=== PATIENT | male | born 1980 | race Two or more races ===

== ENCOUNTER 2025-03-22 15:48 | Inpatient (IN) | payer BC ==
[~2025-03-22] VITALS: Ht 180.3 cm; Wt 108.9 kg
--- NOTE | 2025-03-22 17:06 | ED.PDOC ---
HPI (NEURO) HPI Comments This ia a 44 year old male KRISTYA presenting to the ED with chief complaint of syncope. Patient reports that while at work, he had passed out, waking up on the ground. Patient relays that he feels generally weak at this time. EMS states patient had been working for 7 hours in the heat without proper water or food intake all day. EMS notes patient is currently A/Ox4 and BG of 145. Patient denies any chest pain, headache, SOB, N/V, or abdominal pain. Chief Complaint: Syncope Time Seen by MD: 16:00 Reviewed Notes: Nurses Notes, Warehouse Hand Notes, Medications, Allergies Information Source: Patient, Emergency Med Personnel Mode of Arrival: EMS Severity: Moderate Dizziness/Weakness Severity: Unable to do activities Timing: Hours Duration: Since onset Prehospital treatment: None Onset: With heavy exertion Circumstances: Spontaneous Symptoms: Syncope Past Medical History PAST MEDICAL HISTORY: Denies Surgical History: Denies all surgeries Family History Family History: Reviewed,noncontributory to illness Social History Smoker: Non-Smoker Alcohol: Denies ETOH Use Drugs: Denies Drug Use Lives In: Home Constitutional: reports: weakness; denies: chills, diaphoresis, fatigue, fever, malaise, sweats, others EENTM: denies: blurred vision, double vision, ear bleeding, ear discharge, ear drainage, ear pain, ear ringing, eye pain, eye redness, hearing loss, mouth pain, mouth swelling, nasal discharge, nose bleeding, nose congestion, nose pain, photophobia, tearing, throat pain, throat swelling, voice changes, others Respiratory: denies: cough, hemoptysis, orthopnea, SOB at rest, shortness of breath, SOB with excertion, stridor, wheezing, others Cardiovascular: reports: syncope; denies: chest pain, dizzy spells, diaphoresis, Dyspnea on exertion, edema, irregular heart beat, left arm pain, lightheadedness, palpitations, PND, others Gastrointestinal: denies: abdomen distended, abdominal pain, blood streaked bowels, constipated, diarrhea, dysphagia, difficulty swallowing, hematemesis, melena, nausea, poor appetite, poor fluid intake, rectal bleeding, rectal pain, vomiting, others Genitourinary: denies: burning, dysuria, flank pain, frequency, hematuria, incontinence, penile discharge, penile sore, pain, testicle pain, testicle swelling, urgency, others Neurological: denies: dizziness, fainting, headache, left sided numbness, left sided weakness, numbness, paresthesia, pre-existing deficit, right sided numbness, right sided weakness, seizure, speech problems, tingling, tremors, weakness, others Musculoskeletal: denies: back pain, gout, joint pain, joint swelling, muscle pain, muscle stiffness, neck pain, others Integumetry: denies: bruises, change in color, change in hair/nails, dryness, laceration, lesions, lumps, rash, wounds, others Allergic/Immunocompromised: denies: Difficulty Healing, Frequent Infections, Hives, Itching, others Hematologic/Lymphatic: denies: anemia, blood clots, easy bleeding, easy bruising, swollen glands, others Endocrine: denies: excessive hunger, excessive sweating, excessive thirst, excessive urination, flushing, intolerance to cold, intolerance to heat, unexplained weight gain, unexplained weight loss, others Psychiatric: denies: anxiety, bipolar disorder, depression, hopeless, panic disorder, schizophrenia, sleepless, suicidal, others All Other Systems: Reviewed and Negative Physical Exam General Appearance: No Apparent Distress, Normal HEENT: Normal ENT Inspection, Pharynx Normal, TMs Normal Neck: Full Range of Motion, Non-Tender, Normal, Normal Inspection Respiratory: Chest Non-Tender, Lungs Clear, No Accessory Muscle Use, No Respiratory Distress, Normal Breath Sounds Cardiovascular: No Edema, No JVD, No Murmur, No Gallop, Normal Peripheral Pulses, Regular Rate/Rhythm Breast Exam: Deferred Gastrointestinal: No Organomegaly, Non Tender, No Pulsatile Mass, Normal Bowel Sounds, Soft Genitalia: Deferred Pelvic: Deferred Rectal: Deferred Extremities: No calf tenderness, Normal capillary refill, Normal inspection, Normal range of motion, Non-tender, No pedal edema Musculoskeletal : Apperance: Normal Neurologic: Alert, amalgamator II-XII nml as Tested, No Motor Deficits, Normal Affect, Normal Mood, No Sensory Deficits Cerebellar Function: Normal Reflexes: Normal Skin: Dry, Normal Color, Warm Lymphatic: No Adenopathy Was a procedure done? Was a procedure done?: No Differential Diagnosis (SZ) Seizure: N/A CVA: CVA, SAH, TIA General Weakness: Dehydration, Electrolyte imbalance, Renal failure, TIA Headache: N/A X-Ray, Labs, Meds, VS Vital Signs Date Time Temp Pulse Resp B/P (MAP) Pulse Ox O2 Delivery O2 Flow Rate FiO2 03/22/25 16:03 97.7 70 20 114/68 98 97.7 03/22/25 15:55 75 Lab Test 03/22/25 17:54 03/22/25 16:58 Range/Units Troponin I High Sensitivity 47 38 </=54 ng/L White Blood Count 15.4 H 4.4-10.8 10^3/uL Red Blood Count 5.70 4.5-5.90 10^6/uL Hemoglobin 17.4 13.5-17.5 g/dL Hematocrit 51.5 41.0-53.0 % Mean Corpuscular Volume 90.3 80.0-100.0 fL Mean Corpuscular Hemoglobin 30.5 28.0-32.0 pg Mean Corpuscular Hemoglobin Concent 33.8 32.0-36.0 g/dL Red Cell Distribution Width 13.2 11.8-14.3 % Platelet Count 189 140-450 10^3/uL Mean Platelet Volume 8.1 6.9-10.8 fL Neutrophils (%) (Auto) 90.7 H 37.0-80.0 % Lymphocytes (%) (Auto) 5.4 L 10.0-50.0 % Monocytes (%) (Auto) 3.5 0.0-12.0 % Eosinophils (%) (Auto) 0.1 0.0-7.0 % Basophils (%) (Auto) 0.3 0.0-2.0 % Neutrophils # (Auto) 13.9 H 1.6-8.6 10 ^3/uL Lymphocytes # (Auto) 0.8 0.4-5.4 10 ^3/uL Monocytes # (Auto) 0.5 0-1.3 10 ^3/uL Eosinophils # (Auto) 0 0-0.8 10 ^3/uL Basophils # (Auto) 0 0-0.2 10 ^3/uL Nucleated Red Blood Cells 0.1 % Sodium Level 142 136-145 mmol/L Potassium Level 4.7 3.5-5.1 mmol/L Chloride Level 105 98-107 mmol/L Carbon Dioxide Level 25 20-31 mmol/L Anion Gap 12 5-15 Blood Urea Nitrogen 12 9-23 mg/dL Creatinine 1.89 H 0.700-1.30 mg/dL Glomerular Filtration Rate Calc 44 >90 mL/min BUN/Creatinine Ratio 6.3 L 10.0-20.0 Serum Glucose 105 74-106 mg/dL Calcium Level 10.3 8.7-10.4 mg/dL Time of 1ST Reevaluation: 17:00 Reevaluation 1ST: Unchanged Patient Education/Counseling: Diagnosis, Treatment Family Education/Counseling: No Family Present Departure 1 Departure Time of Disposition: 19:02 (Patient presented with syncope today and should be admitted. Data: 1. I ordered and reviewed the result of at least 3 labs including a CBC, BMP, and troponin. 2. I independently interpreted the following tests: EKG which shows a sinus arrhythmia and a chest x-ray which shows benign chest and a CT head which shows benign brain.Risk:This patient has a high risk of morbidity due to further diagnostic testing or treatment and may suffer from an acute cardiac, neurologic, or infectious disorder. Rationale: Patient should be admitted to the hospital for further management.) Impression: Primary Impression: Syncope and collapse Disposition: ADMITTED INPATIENT Admit to: Med Surg Condition: Serious Critical Care Note Critical Care Time?: No Stability Stability form required: No Heart Score Heart Score: Heart Score Response (Comments) Value History Moderate Suspicious 1 EKG Normal 0 Age <45 0 Risk Factors 1 or 2 risk factors 1 Troponin 1-2 x's Normal limit 1 Total 3 I personally scribed for YENNI ADAME MD ([email or web address]) on 03/22/25 at 17:06. Electronically submitted by Eric Beauchamp ([email or web address]). YENNI ADAME MD Mar 22, 2025 17:06
[2025-03-22 17:15] LABS: Hematocrit 51.5 % (41.0-53.0); Hemoglobin 17.4 g/dL (13.5-17.5); Mean Corpuscular Hemoglobin 30.5 pg (28.0-32.0); Mean Corpuscular Volume 90.3 fL (80.0-100.0); Nucleated Red Blood Cells % 0.1 %
[2025-03-22 17:23] LABS: Chloride 105 mmol/L (98-107); Potassium 4.7 mmol/L (3.5-5.1); Sodium 142 mmol/L (136-145)
[2025-03-22 17:24] LABS: Anion Gap 12 (5-15); Calcium 10.3 mg/dL (8.7-10.4); Carbon Dioxide 25 mmol/L (20-31)
[2025-03-22 17:29] LABS: BUN/Creatinine Ratio 6.3 (10.0-20.0); Blood Urea Nitrogen 12 mg/dL (9-23); Glucose 105 mg/dL (74-106)
--- NOTE | 2025-03-22 17:32 | DVH ---
CHEST RADIOGRAPH Indication: syncope Technique: Single frontal view of the chest was obtained Comparison: None FINDINGS: Lines and Tubes: None Lungs: No focal consolidation. Pleura: No effusion. No pneumothorax. Cardiomediastinal contours: Unremarkable Bones: No acute osseous abnormality. IMPRESSION: No acute cardiopulmonary disease.
--- NOTE | 2025-03-22 17:39 | DVH ---
EXAM: CT HEAD WITHOUT CONTRAST INDICATION: syncope TECHNIQUE: CT of the head without intravenous contrast. Radiation Dose Information: CT Dose: CTDI volume is 58.96 mGy. Dose-length product is 1014.39 mGy*cm The dose indicators for CT are the volume Computed Tomography (CT) Dose Index (CTDIvol) and the Dose Length Product (DLP), and are measured in units of mGy and mGy-cm, respectively. These indicators are not patient dose, but values generated from the CT scanner acquisition factors. The report includes radiation exposure data for exposures received during this examination. COMPARISON: None FINDINGS: There is no evidence of acute intracranial hemorrhage, extra-axial collection, mass effect, midline s hift, herniation or hydrocephalus. The ventricles, sulci and cisterns are age appropriate. The vora-white differentiation is intact. Patchy periventricular and subcortical white matter hypoattenuation is nonspecific but may be related to small vessel ischemic disease. The visualized paranasal sinuses and mastoid air cells are clear. The surrounding soft tissues and osseous structures are unremarkable. IMPRESSION: 1. No acute intracranial abnormality. 2. No acute intracranial hemorrhage 3. No intracranial mass 4. No territorial ischemia.
--- NOTE | 2025-03-22 18:49 | ECG ---
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
[2025-03-22 20:38] LABS: Urine Protein, UAD Negative (Negative)
[2025-03-22] MEDS: SODIUM CHLORIDE 0.9% 1,000 ML IV ONE (22:44)
[2025-03-22] MEDS ORDERED: ONDANSETRON HCL 4 MG/2 ML VIAL IV PRN (23:30)
[2025-03-22] MEDS ORDERED: DOCUSATE SOD 100 MG CAP PO PRN (23:30)
[2025-03-23] VITALS (7 sets, daily range): BP systolic 100–130; BP diastolic 51–73; PULSE 58–80; RESP 18–19; TEMP 97.1–98.6; O2SAT 96–98
[2025-03-23 03:57] LABS: Hematocrit 46.5 % (41.0-53.0); Hemoglobin 16.0 g/dL (13.5-17.5); Mean Corpuscular Hemoglobin 30.6 pg (28.0-32.0); Mean Corpuscular Volume 89.2 fL (80.0-100.0); Nucleated Red Blood Cells % 0.1 %
[2025-03-23 05:00] LABS: Alanine Aminotransferase 34 U/L (7-40); Albumin 4.5 g/dL (3.2-4.8); Alkaline Phosphatase 61 U/L (46-116); Anion Gap 12 (5-15); BUN/Creatinine Ratio 8.6 (10.0-20.0); Bilirubin, Total 1.1 mg/dL (0.2-1.0); Blood Urea Nitrogen 13 mg/dL (9-23); Calcium 9.4 mg/dL (8.7-10.4); Carbon Dioxide 25 mmol/L (20-31); Chloride 105 mmol/L (98-107); Glucose 85 mg/dL (74-106); Potassium 4.1 mmol/L (3.5-5.1); Sodium 142 mmol/L (136-145); Total Protein 7.5 g/dL (5.7-8.2)
[2025-03-23] MEDS: SODIUM CHLORIDE 0.9% 1,000 ML IV SCH (07:29)
[2025-03-23 08:22] LABS: Creatine Kinase IFCC 566 U/L (46-171)
--- NOTE | 2025-03-23 08:43 | DVH ---
INDICATION: rule out kideneys, ureter and bladder obstruction TECHNIQUE: Multiple real-time sonographic images of the kidneys and bladder were obtained. COMPARISON: None FINDINGS: The right kidney measures 9 cm in length, which is normal in size. There is normal echogeni city of the right kidney. No hydronephrosis. The left kidney measures 9 cm in length, which is normal in size. There is normal echogenicity of the left kidney. No hydronephrosis. No large intraluminal masses are seen in the bladder. IMPRESSION: 1. Normal sonographic appearance of the kidneys. No hydronephrosis.
--- NOTE | 2025-03-23 09:01 | DVHHPRES ---
History of Present Illness Resident Creating Document: KENDALL DURAN History of Present Illness History of Present Illness (HPI): Raleigh Sandoval is a 44-year-old male with a past medical history of chronic kidney disease stage 3a and asthma who presented to the emergency department via EMS with a chief complaint of syncope. 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 During this time, he experienced a sudden loss of consciousness and awoke on the ground, prompting emergency services to be called. Upon EMS arrival, he was found to be alert and oriented to person, place, time, and situation (A/Ox4), with a blood glucose level of 145. The patient reports feeling generally weak and notes that he had three episodes of vomiting, along with blurring of vision and pain in the head and neck. He denies experiencing chest pain, shortness of breath, headache, nausea, abdominal pain, or fever. Past Medical History (PMH): chronic kidney disease stage 3a and asthma Past Surgical History (PSH): Left wrist surgery OBGYN Hx in Females: noncontributory Family history (FH): thyroid disease and type 2 diabetes mellitus in father EtOH: occasional alcohol use Smoking /Vaping: patient denies smoking Recreational Drugs: denies recreational drug use Residence: lives with daughter Home Medications: albuterol Allergies: no known allergies PCP:Dr. Trujillo Specialist relevant to admission: not relevant Review of Systems Review of Systems General: patient denies fever, fatigue, weaknes, sweating, any recent changes in appetite and weight HEENT: Complaint of headache and neck pain Cardiovascular: Denies chest pain, palpitations, dyspnea on exertion, orthopnea, or claudication. Respiratory: No cough, and wheezing. Gastrointestinal: Denies nausea, vomiting, dysphagia, odynophagia, heartburn, abdominal pain, flatulence, bloating, diarrhea, constipation, change in stool, or blood in stool. Genitourinary: No dysuria, hematuria, discharge, frequency, urgency, nocturia, incontinence, and urinary retention. Endocrine: No heat or cold intolerance, polydipsia, polyuria, and polyphagia. Neurological: No dizziness, extremity weakness and numbness, tremors, gait disturbance, seizures, and memory impairment. Psychiatric: Denies depression, anxiety,or insomnia. Musculoskeletal: Denies neck pain, stiffness and swelling, back pain, muscle weakness, joint pain, stiffness, swelling, or limited range of motion. Skin: No rashes, itching, skin lesion, changes in hair, nail, skin texture and breast. Hematologic/Lymphatic: Denies easy bruising, bleeding tendencies, or lymph node enlargement. Allergies: Coded Allergies: NO KNOWN ALLERGIES (Unverified , 03/22/25) Medications Current Medications Medications Dose Ordered Sig/Francis Route Start Time Stop Time Status Last Admin Dose Admin Acetaminophen 325 mg Q4HP PRN PO 03/22/25 23:30 Ondansetron HCl 4 mg Q4HP PRN IV 03/22/25 23:30 Docusate Sodium 100 mg BIDPRN PRN PO 03/22/25 23:30 Sodium Chloride 1,000 ml @ 125 mls/hr Q8H IV 03/23/25 00:30 03/23/25 07:29 125 MLS/HR Loratadine 10 mg DAILY PO 03/23/25 10:00 Exam Vital Signs Vital Signs Date Time Temp Pulse Resp B/P (MAP) Pulse Ox O2 Delivery O2 Flow Rate FiO2 03/23/25 05:00 97.1 72 18 123/63 (83) 97 97.1 03/23/25 04:00 Room Air* 0 21 Exam General Appearance: Alert, Oriented X3, Cooperative, No acute distress HEENT: Atraumatic, PERRLA, EOMI, Mucous membrane moist/pink Respiratory: Clear to auscultation, Normal air movement Cardiovascular: Regular rate, Normal S1, Normal S2, No murmurs, no chest wall tenderness Abdominal: Normal bowel sounds, Soft, No tenderness, No hepatospenomegaly, No masses Extremities: No clubbing, No cyanosis, No edema, Normal pulses, No tenderness/swelling Skin: No rashes, No breakdown, No significant lesion Neuro: Normal gait, Normal speech, Strength at 5/5 X4 ext, Normal tone, Sensation intact, Cranial nerves 3-12 NL, Reflexes 2+ Psych/Mental Status: Mental status NL, Mood NL Labs/Xrays Labs Test 03/23/25 03:05 03/22/25 19:45 03/22/25 18:20 Range/Units White Blood Count 11.6 H 4.4-10.8 10^3/uL Red Blood Count 5.21 4.5-5.90 10^6/uL Hemoglobin 16.0 13.5-17.5 g/dL Hematocrit 46.5 41.0-53.0 % Mean Corpuscular Volume 89.2 80.0-100.0 fL Mean Corpuscular Hemoglobin 30.6 28.0-32.0 pg Mean Corpuscular Hemoglobin Concent 34.4 32.0-36.0 g/dL Red Cell Distribution Width 13.3 11.8-14.3 % Platelet Count 204 140-450 10^3/uL Mean Platelet Volume 8.3 6.9-10.8 fL Neutrophils (%) (Auto) 71.5 37.0-80.0 % Lymphocytes (%) (Auto) 21.9 10.0-50.0 % Monocytes (%) (Auto) 6.0 0.0-12.0 % Eosinophils (%) (Auto) 0.2 0.0-7.0 % Basophils (%) (Auto) 0.4 0.0-2.0 % Neutrophils # (Auto) 8.3 1.6-8.6 10 ^3/uL Lymphocytes # (Auto) 2.5 0.4-5.4 10 ^3/uL Monocytes # (Auto) 0.7 0-1.3 10 ^3/uL Eosinophils # (Auto) 0 0-0.8 10 ^3/uL Basophils # (Auto) 0 0-0.2 10 ^3/uL Nucleated Red Blood Cells 0.1 % Sodium Level 142 136-145 mmol/L Potassium Level 4.1 3.5-5.1 mmol/L Chloride Level 105 98-107 mmol/L Carbon Dioxide Level 25 20-31 mmol/L Anion Gap 12 5-15 Blood Urea Nitrogen 13 9-23 mg/dL Creatinine 1.51 H 0.700-1.30 mg/dL Glomerular Filtration Rate Calc 58 >90 mL/min BUN/Creatinine Ratio 8.6 L 10.0-20.0 Serum Glucose 85 74-106 mg/dL Calcium Level 9.4 8.7-10.4 mg/dL Total Bilirubin 1.1 H 0.2-1.0 mg/dL Aspartate Amino Transferase (AST) 40 13-40 U/L Alanine Aminotransferase (ALT) 34 7-40 U/L Alkaline Phosphatase 61 46-116 U/L Creatine Kinase 566 H 46-171 U/L Total Protein 7.5 5.7-8.2 g/dL Albumin 4.5 3.2-4.8 g/dL Plasma/Serum Blood Alcohol < 3.0 <10 mg/dL Troponin I High Sensitivity 48 </=54 ng/L Urine Color Yellow Yellow Urine Clarity Clear Clear Urine pH 5.5 5.0-9.0 Urine Specific [place] 1.026 1.001-1.035 Urine Protein Negative Negative Urine Ketones 2+ H Negative Urine Blood Negative Negative /uL Urine Nitrite Negative Negative Urine Bilirubin Negative Negative Urine Urobilinogen Normal Negative mg/dL Urine Leukocyte Esterase Negative Negative /uL Urine RBC None seen 0 - 3 /hpf Urine Microscopic WBC 1 0-3 /HPF Urine Squamous Epithelial Cells None seen <5 /hpf Urine Bacteria None seen None Seen /hpf Urine Mucus Few None Seen Urine Glucose Normal Normal mg/dL SEPSIS Sepsis Screen Date sepsis recognized/suspect: Mar 22, 2025 Time Sepsis recognized/suspect: 2207 Recent Procedure: No On Antibiotic Therapy: No Respiratory Rate >20: No Heart Rate >90: No Temp<36 C (96.8 F) or >38.3 C: No SBP <90 or MAP <65 mmHG: No New Acute Mental Status Change: No Is the patient on CPAP, BIPAP,: No Physician Orders Renal Standard(2gna,3gk,Lopho) (03/23/25 Breakfast) Kidney (03/23/25 06:57) Lactic Acid W/ Reflex Order (03/23/25 06:57) Loratadine Tablet (Claritin Tablet) (03/23/25 10:00) Echo 2d Mode Cardiac Dop (03/23/25 06:57) Hemoglobin A1c (03/23/25 06:57) Drug Screen (03/23/25 06:57) Blood Culture (03/23/25 06:57) Covid19 Antigen Lali (03/23/25 ) Rapid Influenza A&B (03/23/25 06:57) Urine Sodium (03/23/25 07:05) Urine Protein/Creatinine Ratio (03/23/25 ) Urine Potassium (03/23/25 07:05) Urine Protein (03/23/25 07:05) Urine Creatinine (03/23/25 07:05) Osmolality Urine (03/23/25 07:05) Orthostatic Vital Signs (03/23/25 07:10) Fall Precautions Initiated (03/23/25 07:10) Vital Signs Date Time Temp Pulse Resp B/P (MAP) Pulse Ox O2 Delivery O2 Flow Rate FiO2 03/23/25 05:00 97.1 72 18 123/63 (83) 97 97.1 03/23/25 04:00 Room Air* 0 21 Laboratory Tests Test 03/23/25 03:05 White Blood Count 11.6 10^3/uL (4.4-10.8) H Medications Medications Dose Ordered Sig/Francis Route Start Time Stop Time Status Last Admin Dose Admin Sodium Chloride 1,000 ml @ 125 mls/hr Q8H IV 03/23/25 00:30 03/23/25 07:29 125 MLS/HR Sodium Chloride 1,000 ml @ 1,000 mls/hr Q1H ONCE IV 03/22/25 22:15 03/22/25 23:14 DC 03/22/25 22:44 1,000 MLS/HR Assessment/Plan Assessment/Plan # Syncope, to rule out cardiac, neurological infectious causes - EKG - ECHO - blood culture, COVID, influenza - Fall precautions in place # ISAIAH on CKD - renal ultrasound - urine sodium, potassium, protein - IV fluids # History of seizures, to rule out seizures - Lactic acid - Creatine Kinase # History of asthma - continue home medications PUD prophylaxis: Loratidine DVT prophylaxis: brisk movement. Barriers to discharge: Medical diagnosis and managment in progress. Patient lives with daughter. Independent for ADL. PCP: Dr. Trujillo Specialist Relevent To Admission: Nonrelevant Case discussed with Dr. Crain. Code Status: Full Code. Complex patient care discussion needed. Spend total 39 minutes for bedside assessment, case discussion and management. Plan discussed with: Patient My Orders Orders - KENDALL DURAN RESIDENT Procedure Category Date Status Time Admit ADMIT 03/22/25 Transmitted 23:18 Allergies DANN 03/22/25 In Process 23:18 Code Status CODE 03/22/25 Transmitted 23:18 Acetaminophen Tablet PHA 03/22/25 In Process (Tylenol Tablet) 23:30 Ondansetron Hcl PHA 03/22/25 In Process (Zofran) 23:30 Docusate Sodium PHA 03/22/25 In Process Capsule (Colace 23:30 Fall Risk Precautions DANN 03/22/[address] 23:18 Condition: Fair DANN 03/22/25 In Process 23:18 Sodium Chloride 0.9% PHA 03/23/25 In Process 00:30 Renal DIET 03/23/25 Transmitted Standard(2gna,3gk,Lopho) Breakfast Kidney US 03/23/25 Resulted 06:57 Lactic Acid W/ Reflex LAB 03/23/25 Logged Order 06:57 Loratadine Tablet PHA 03/23/25 In Process (Claritin Tablet) 10:00 Echo 2d Mode Cardiac US 03/23/25 Logged DOP 06:57 Hemoglobin A1c LAB 03/23/25 In Process 06:57 Drug Screen LAB 03/23/25 Logged 06:57 Blood Culture CATRACHITO 03/23/25 Logged 06:57 Covid19 Antigen Lali LAB 03/23/25 Logged Rapid Influenza A&B LAB 03/23/25 Logged 06:57 Urine Sodium LAB 03/23/25 Logged 07:05 Urine LAB 03/23/25 Logged Protein/Creatinine Urine Potassium LAB 03/23/25 Logged 07:05 Urine Protein LAB 03/23/25 Logged 07:05 Urine Creatinine LAB 03/23/25 Logged 07:05 Osmolality Urine LAB 03/23/25 Logged 07:05 Orthostatic Vital ORDERS 03/23/25 Transmitted Signs 07:10 Fall Precautions [facility] 03/23/25 In Process Initiated 07:10 Date of Service: Mar 22, 2025 Billing Provider: CHANA CRAIN MD Common Visit Codes: [id number] INP/OBS CARE (HIGH) Secondary Visit Codes: [id number] CARE PLAN 30 MINUTES KENDALL DURAN RESIDENT Mar 23, 2025 09:01
[2025-03-23] MEDS: ACETAMINOPHEN 325 MG TAB PO PRN (10:47)
[2025-03-23] MEDS: LORATADINE 10 MG TAB PO SCH (10:51)
[2025-03-23 10:58] LABS: Protein, Urine 6.1 mg/dL (1-14); Protein, Urine 6.9 mg/dL (1-14)
[2025-03-23 10:59] LABS: Amphetamine Screen, Urine Neg (NEGATIVE); Barbiturate Scree,Urine Neg (NEGATIVE); Benzodiazephine Screen, Urine Neg (NEGATIVE); Cannabinoid Screen, Urine Neg (NEGATIVE); Cocaine Screen, Urine Neg (NEGATIVE); Opiate Scree,Urine Neg (NEGATIVE); Phencyclidine Screen, Urine Neg (NEGATIVE)
[2025-03-23 12:19] LABS: Free T4 (Free Thyroxine) 1.17 ng/dL (0.89-1.76)
--- NOTE | 2025-03-23 16:08 | DVHPNRES ---
Progress Note Date Seen: Mar 23, 2025 Resident Creating Document: FELY TRUONG RESIDENT Medical Necessity Reason Pt with a Central, PICC or Fol: No Subjective Review of Systems This is a 44-year-old male who presented to the ED after a syncopal episode. The patient reported that he was working outside in the sun for very long hours and sweat a lot. She then went to an air-conditioned cooler room and the moment he got out back into the heat, he started vomiting and sweating excessively and then he passed out. His nephew was with him when this incident and called the EMS. He felt very weak and confused after the episode. On admission he was alert and oriented with a blood glucose of 145. He also experienced chills along with the episodes of vomiting he did not have any fever nausea, abdominal pain or headache. He was started on IV fluids. 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 Patient is alert and oriented to time, place person and responding to all questions. Patient complains of generalized weakness. Eyes: No Pain, No Vision change, No Conjunctivae inflammation, No Eyelid inflammation, No Redness ENT: No Ear pain, No Ear discharge, No Nose pain, No Nose discharge, No Nose congestion, No Mouth pain, No Mouth swelling, No Throat pain, No Throat swelling Cardiovascular: No Chest Pain, No Palpitations, No Orthopnea, No Paroxysmal No Dyspnea, No Edema, No Lt Headedness Respiratory: No Cough, No Dry, No Shortness of breath, No SOB with exertion, No Wheezing, No Hemoptysis, No Pleuritic Pain, No Sputum Gastrointestinal: No Nausea, No Vomiting, No Abdominal Pain, No Diarrhea, No Constipation, No Melena, No Hematochezia Genitourinary: No Dysuria, No Frequency, No Incontinence, No Hematuria, No Retention Patient reports: Feels better Objective vital signs Vital Sign Date Time Temp Pulse Resp B/P (MAP) Pulse Ox O2 Delivery O2 Flow Rate FiO2 03/23/25 13:00 97.2 80 19 104/73 (83) 98 97.2 03/23/25 04:00 Room Air* 0 21 Total Intake and Output 03/22/25 03/22/25 03/23/25 15:00 23:00 07:00 Intake Total 0 ml Balance 0 ml medications Current Medications Medications Dose Ordered Sig/Francis Route Start Time Stop Time Status Last Admin Dose Admin Acetaminophen 325 mg Q4HP PRN PO 03/22/25 23:30 03/23/25 10:47 325 MG Ondansetron HCl 4 mg Q4HP PRN IV 03/22/25 23:30 Docusate Sodium 100 mg BIDPRN PRN PO 03/22/25 23:30 Sodium Chloride 1,000 ml @ 125 mls/hr Q8H IV 03/23/25 00:30 03/23/25 07:29 125 MLS/HR Loratadine 10 mg DAILY PO 03/23/25 10:00 03/23/25 10:51 10 MG Examination General Appearance: Cooperative. Well developed. Well nourished. Head Exam: Normal inspection Neck Exam: Normal inspection. Non-tender. Normal alignment Pulmonary/Respiratory: Chest non-tender. Clear bilateral breath sounds, no crackles, no wheezing. Cardiovascular/Chest: Regular rate and rhythm. No murmurs. No JVD. Peripheral Pulses: 2+ Radial (R). 2+ Radial (L). 2+ Pedal (R). 2+ Pedal (L) Abdominal Exam: Normal bowel sounds. Soft. normal abdomen, no visible veins, Nontender. No hepatospenomegaly. No masses Ankle Exam: Negative ankle edema Lower extremities: Negative lower extremity edema Neuro/Mental Status: A&O x4. Coherent. Thoughts/Psych: Normal thought pattern. Appropriate mood and affect. Good judgement and insight Skin Exam: Normal inspection. Normal color. Warm. Dry Nurse was a general production manager during the examination laboratory and microbiology Laboratory Tests 03/23/25 03:05 Test 03/23/25 03:05 Range/Units Serum Glucose 85 74-106 mg/dL Labs and/or images reviewed: Labs reviewed by me, Image(s) reviewed by me Problem List/Assessment/Plan Problem List/Assessment/Plan # Heat exhaustion #Heat syncope #Severe dehydration -symptomatic management with IVF 125 mL/hour -monitor labs -ondansetron for nausea and vomiting -Head CT showed no acute changes -pending echo # ISAIAH, likely we VMN with questionable CKD -continuously monitor labs -IVF as above -avoid nephrotoxic agents #Possible rhabdomylysis -CK was 566 -monitor CK and other labs #Reactive leukocytosis, likely from heat exhaustion # possible euthyroid sick syndrome -TSH was 0.20 -ordered free T4 and total T3 #Ruled out seizures PUD prophylaxis: Not indicated DVT prophylaxis: Not indicated Goals of care: Full code, discussed for >23 minutes Plan discussed with patient Plan discussed with Dr. Salcedo Plan discussed with: Patient My Orders My Orders Orders - FELY TRUONG RESIDENT Procedure Category Date Status Time PTPTT LAB 03/23/25 Logged 09:28 Troponin-I Hs LAB 03/23/25 Logged 15:34 Rapid Influenza A&B LAB 03/23/25 Logged 15:34 Troponin-I Hs LAB 03/23/25 Logged 16:34 Troponin-I Hs LAB 03/23/25 Logged 18:34 Creatine Kinase LAB 03/24/25 Verified 04:00 Date of Service: Mar 23, 2025 Billing Provider: CARLOS CASTILLO MD Common Visit Codes: [id number] INP/OBS CARE(HIGH) FELY TRUONG RESIDENT Mar 23, 2025 16:08 CARLOS CASTILLO MD Mar 26, 2025 01:36
[2025-03-23 18:39] LABS: COVID19 ANTIGEN SOFIA FIA NEGATIVE (NEGATIVE)
[2025-03-23 19:27] LABS: INR 1.03 (0.9-1.15); Partial Thromboplastin Time 28.5 SEC (24.5-34.5); Prothrombin Time 10.9 sec (9.3-11.8)
[2025-03-24 01:00] VITALS: BP 109/58; PULSE 55; RESP 18; TEMP 97.6; O2SAT 96
--- NOTE | 2025-03-24 02:31 | DVHSR ---
APPROVED REPORT EXAM: Two-dimensional and M-mode echocardiogram with Doppler and color Doppler. Blood Pressure: 123/63 mmHg INDICATION Rule out structural heart disease RISK FACTORS Height: 70, Weight: 220 DIMENSIONS LVDd4.4 (3.8-5.7cm)LA (2D)4.3 (1.9-4.0cm)Aortic Root3.3 (2.0-3.7cm) LVDs2.6 (2.5-4.0cm)LA (MM) (1.9-4.0cm)Aortic Cusp Exc1.7 (1.5-2.0cm) EF (%) 72.0 (55-70%)Rt. Atrium5.0 (1.9-4.0cm)Asc. Aorta cm Mitral Valve MitralMitral Stenosis E wave0.92m/sMV Mean GR.mmHg A wave0.79m/sMV Peak GR.121mmHg E/A ratio1.22D MVAcm2 DECEL [id number] 1/2 [id number] IVRTmsDop MVA3.77cm2 Aortic Valve Aortic ValveAortic Stenosis V10.90m/Richard Mean GR.4mmHg V21.31m/Richard Peak GR.7mmHg LVOT Diameter2.0 (1.8-2.4cm)Doppler AVA2.16cm2 Pulmonic Valve V21.56m/s Conclusion LV EF IS 65% AND IS NORMAL SLIGHTLY DILATED LA NORMAL VALVES NORMAL RV FUNCTION NO EFFUSION
[2025-03-24 05:00] VITALS: BP_SYST 0; BP_SYST 116; BP_DIAS 80; PULSE 57; RESP 18; TEMP 97.7; O2SAT 98
[2025-03-24 08:00] VITALS: PULSE 57
[2025-03-24 08:03] LABS: Hematocrit 39.4 % (41.0-53.0); Hemoglobin 13.9 g/dL (13.5-17.5); Mean Corpuscular Hemoglobin 31.1 pg (28.0-32.0); Mean Corpuscular Volume 88.3 fL (80.0-100.0); Nucleated Red Blood Cells % 0.2 %
[2025-03-24 08:06] LABS: Potassium 4.1 mmol/L (3.5-5.1); Sodium 143 mmol/L (136-145)
[2025-03-24 08:07] LABS: Anion Gap 8 (5-15); Carbon Dioxide 26 mmol/L (20-31)
[2025-03-24 08:09] LABS: Calcium 8.4 mg/dL (8.7-10.4); Chloride 109 mmol/L (98-107)
[2025-03-24 08:12] LABS: BUN/Creatinine Ratio 8.3 (10.0-20.0); Blood Urea Nitrogen 12 mg/dL (9-23); Glucose 82 mg/dL (74-106)
[2025-03-24 09:52] VITALS: BP 106/59; PULSE 52; RESP 17; TEMP 97.8; O2SAT 99
--- NOTE | 2025-03-24 14:09 | DVHDSRES ---
Discharge Summary Date of Admission Resident Creating Document: FELY TRUONG RESIDENT Mar 22, 2025 at 23:18 Date of Discharge: Mar 24, 2025 Admitting Diagnosis Syncope and collapse Labs/Diagnostic Data: Laboratory Results Test 03/24/25 06:39 03/23/25 18:45 03/23/25 18:10 03/23/25 09:46 White Blood Count 6.4 10^3/uL (4.4-10.8) Red Blood Count 4.47 10^6/uL (4.5-5.90) Hemoglobin 13.9 g/dL (13.5-17.5) Hematocrit 39.4 % (41.0-53.0) Mean Corpuscular Volume 88.3 fL (80.0-100.0) Mean Corpuscular Hemoglobin 31.1 pg (28.0-32.0) Mean Corpuscular Hemoglobin Concent 35.2 g/dL (32.0-36.0) Red Cell Distribution Width 13.0 % (11.8-14.3) Platelet Count 168 10^3/uL (140-450) Mean Platelet Volume 8.2 fL (6.9-10.8) Neutrophils (%) (Auto) 56.5 % (37.0-80.0) Lymphocytes (%) (Auto) 34.5 % (10.0-50.0) Monocytes (%) (Auto) 5.8 % (0.0-12.0) Eosinophils (%) (Auto) 2.8 % (0.0-7.0) Basophils (%) (Auto) 0.4 % (0.0-2.0) Neutrophils # (Auto) 3.6 10 ^3/uL (1.6-8.6) Lymphocytes # (Auto) 2.2 10 ^3/uL (0.4-5.4) Monocytes # (Auto) 0.4 10 ^3/uL (0-1.3) Eosinophils # (Auto) 0.2 10 ^3/uL (0-0.8) Basophils # (Auto) 0 10 ^3/uL (0-0.2) Nucleated Red Blood Cells 0.2 % Sodium Level 143 mmol/L (136-145) Potassium Level 4.1 mmol/L (3.5-5.1) Chloride Level 109 mmol/L (98-107) Carbon Dioxide Level 26 mmol/L (20-31) Anion Gap 8 (5-15) Blood Urea Nitrogen 12 mg/dL (9-23) Creatinine 1.45 mg/dL (0.700-1.30) Glomerular Filtration Rate Calc 61 mL/min (>90) BUN/Creatinine Ratio 8.3 (10.0-20.0) Serum Glucose 82 mg/dL (74-106) Calcium Level 8.4 mg/dL (8.7-10.4) Creatine Kinase 325 U/L (46-171) Prothrombin Time 10.9 sec (9.3-11.8) Prothrombin Time INR 1.03 (0.9-1.15) Activated Partial Thromboplast Time 28.5 SEC (24.5-34.5) Influenza Type A Antigen Negative (Negative) Influenza Type B Antigen Negative (Negative) SARS-CoV-2 Antigen (Rapid) Negative (NEGATIVE) Free Thyroxine (T4) Calculated 1.17 ng/dL (0.89-1.76) Total Triiodothyronine (TT3) 0.82 ng/mL (0.60-1.81) Test 03/23/25 08:47 03/23/25 08:00 03/23/25 03:05 03/22/25 19:45 Lactic Acid Level 0.9 mmol/L (0.4-2.0) Urine Osmolality 851 mOsm/kg Urine Creatinine 244.52 mg/dL (30.0-125.0) Urine Protein/Creatinine Ratio 0.02 Urine Sodium 72 mmol/L (40-220) Urine Potassium 47 mmol/L (12-62) Urine Total Protein 6.1 mg/dL (1-14) Urine Opiates Screen Neg (NEGATIVE) Urine Fentanyl Screen Neg (NEGATIVE) Urine Barbiturates Screen Neg (NEGATIVE) Urine Phencyclidine Screen Neg (NEGATIVE) Urine Amphetamines Screen Neg (NEGATIVE) Urine Benzodiazepines Screen Neg (NEGATIVE) Urine Cocaine Screen Neg (NEGATIVE) Urine Cannabinoids Screen Neg (NEGATIVE) Hemoglobin A1c 5.1 % A1C (<5.7) Total Bilirubin 1.1 mg/dL (0.2-1.0) Aspartate Amino Transferase (AST) 40 U/L (13-40) Alanine Aminotransferase (ALT) 34 U/L (7-40) Alkaline Phosphatase 61 U/L (46-116) Total Protein 7.5 g/dL (5.7-8.2) Albumin 4.5 g/dL (3.2-4.8) Thyroid Stimulating Hormone (TSH) 0.20 uIU/mL (0.55-4.78) Plasma/Serum Blood Alcohol < 3.0 mg/dL (<10) Troponin I High Sensitivity 48 ng/L (</=54) Test 03/22/25 18:20 Urine Color Yellow (Yellow) Urine Clarity Clear (Clear) Urine pH 5.5 (5.0-9.0) Urine Specific [place] 1.026 (1.001-1.035) Urine Protein Negative (Negative) Urine Ketones 2+ (Negative) Urine Blood Negative /uL (Negative) Urine Nitrite Negative (Negative) Urine Bilirubin Negative (Negative) Urine Urobilinogen Normal mg/dL (Negative) Urine Leukocyte Esterase Negative /uL (Negative) Urine RBC None seen /hpf (0 - 3) Urine Microscopic WBC 1 /HPF (0-3) Urine Squamous Epithelial Cells None seen /hpf (<5) Urine Bacteria None seen /hpf (None Seen) Urine Mucus Few (None Seen) Urine Glucose Normal mg/dL (Normal) Other Laboratory Tests 03/24/25 06:39 Brief Hx & Hospital Course: The patient is a 44-year-old male who presented to the emergency department following a syncopal episode. He reported prolonged outdoor work in high temperatures with excessive sweating, followed by a sudden transition into a cooler, air-conditioned environment. Upon returning to the heat, he experienced profuse sweating, vomiting, and subsequently lost consciousness. His nephew witnessed the event and called EMS. Upon admission, the patient was alert and oriented, with a blood glucose level of 145. He reported chills during the episode but denied fever, nausea, abdominal pain, or headache. Initial management included IV fluid resuscitation at 125 mL/hour and symptomatic treatment with ondansetron. Head CT showed no acute changes, and an echocardiogram was pending. The patient was diagnosed with heat exhaustion, heat syncope, and severe dehydration. Laboratory monitoring was initiated, and nephrotoxic agents were avoided due to concern for acute kidney injury (ISAIAH), possibly related to volume depletion with questionable underlying chronic kidney disease (CKD). Creatine kinase (CK) was elevated at 566, raising concern for possible rhabdomyolysis, and CK levels were monitored. Reactive leukocytosis was noted, likely secondary to heat stress. Thyroid function tests revealed a low TSH of 0.20, prompting evaluation for possible euthyroid sick syndrome with ordered free T4 and total T3 levels. Seizure activity was ruled out. The patients condition improved during hospitalization; he remained hemodynamically stable and was deemed fit for discharge. He was advised to follow up with his primary care provider and the discharge clinic within one week. Lifestyle modifications including a balanced diet, regular exercise, and adequate hydration were recommended, along with precautions to avoid similar heat-related exposures. Discharge plan discussed with the patient and agreed with the plan. Past medical history: Asthma, ?CKD stage 3 Past surgical history: Surgery on the left wrist Family history: Thyroid disease and type 2 diabetes mellitus Social & Personal history: Lives at home with chills Smoking: Denies Alcohol: Occasional use , quit 4-5 years back Drugs: Methamphetamine use, quit 4 to 5 years back Allergies: No known allergies General Appearance: Cooperative. Well developed. Well nourished. Head Exam: Normal inspection Neck Exam: Normal inspection. Non-tender. Normal alignment Pulmonary/Respiratory: Chest non-tender. Clear bilateral breath sounds, no crackles, no wheezing. Cardiovascular/Chest: Regular rate and rhythm. No murmurs. No JVD. Peripheral Pulses: 2+ Radial (R). 2+ Radial (L). 2+ Pedal (R). 2+ Pedal (L) Abdominal Exam: Normal bowel sounds. Soft. normal abdomen, no visible veins, Nontender. No hepatosplenomegaly. No masses Ankle Exam: Negative ankle edema Lower extremities: Negative lower extremity edema Neuro/Mental Status: A&O x4. Coherent. Thoughts/Psych: Normal thought pattern. Appropriate mood and affect. Good judgement and insight Skin Exam: Normal inspection. Normal color. Warm. Dry Nurse was a rental coordinator during the examination. Goals of care discussed with the patient on the day of discharge for 20 minutes; full code. Case was discussed with Dr. Corona. Operations or Procedures 1.PROCEDURE(s): CXRP - CHEST PORTABLE REASON: syncope ORDER NUMBER(s): [id number], ACCESSION NUMBER(s): [id number] CHEST RADIOGRAPH Indication: syncope IMPRESSION: No acute cardiopulmonary disease. 2.PROCEDURE(s): HWOCT - HEAD WITHOUT CONTRAST REASON: syncope ORDER NUMBER(s): [id number], ACCESSION NUMBER(s): [id number] EXAM: CT HEAD WITHOUT CONTRAST INDICATION: syncope IMPRESSION: 1. No acute intracranial abnormality. 2. No acute intracranial hemorrhage 3. No intracranial mass 4. No territorial ischemia. 3.PROCEDURE(s): KIDUS - KIDNEY REASON: rule out kideneys, ureter and bladder obstruction ORDER NUMBER(s): [id number], ACCESSION NUMBER(s): [id number] INDICATION: rule out kideneys, ureter and bladder obstruction IMPRESSION: 1. Normal sonographic appearance of the kidneys. No hydronephrosis. Condition at Discharge: Stable Final Diagnosis/Problems List Heat exhaustion Heat syncope Severe dehydration ISAIAH, likely VMN with questionable CKD Possible rhabdomylysis Reactive leukocytosis, likely from heat exhaustion possible euthyroid sick syndrome Discharge Disposition: Home Discharge Instruct/Medications Diet: Regular Activity: No Restrictions, As Tolerated Follow Up/Referral: Follow-up in [place] clinic Follow-up with PCP No Active Prescriptions or Reported Meds Discharge Statement: "Patient was advised to return to the ER or call 911 if any headaches, dizziness, shortness of breath, chest pain, abdominal pain, bleeding, fevers, or worsening of medical condition. Patient was counseled about treatment plan, medications, possible side effects, patientverbalized understanding. All questions were answered to the best of my ability. This discharge took greater then 30 minutes in planning, reviewing documentation, counseling the patient, and discussing with other team members." ASSESSMENT ASSESSMENT Hospital Course This is a 44-year-old male who presented to the ED after a syncopal episode. The patient reported that he was working outside in the sun for very long hours and sweat a lot. He then went to an air-conditioned room which was much colder than the outside, and the moment he got out back into the heat, he started vomiting and sweating excessively and then he passed out. His nephew was with him when this incident occurred and called the EMS. He felt very weak and confused after the episode. On admission he was alert and oriented with a blood glucose of 145. He also experienced chills along with the episodes of vomiting he did not have any fever nausea, abdominal pain or headache. He was started on IV fluids. His serum creatinine on admission was 1.89 which went down to 1.5. On evaluation today, the patient said he is doing much better. His creatinine has gone down to 1.45 and CK has gone down from my 566 to 325. He does not have any weakness. The patient was explained all about his diagnosis, medications and recommendations and demonstrated complete understanding of the same. All questions were answered and all concerns addressed. Patient was discharged home in a stable condition. Assessment Heat exhaustion Heat syncope Severe dehydration ISAIAH, likely we VMN with questionable CKD Possible rhabdomylysis Addendum Addendum Addendum I was physically present for the vuong portions of the service provided to patient by THE RESIDENT. I have reviewed the documentation, discussed the case with resident and agree with the resident's documentation except as noted. Also the patient's clinical case was discussed with the patient's nurse. This medical document was created using an electronic medical record system with computerized dictation system. Although this document has been carefully reviewed, there might still be some phonetic and typographical errors. These areas are purely typographical due to imperfections of the software programs, and do not reflect any compromise in the patient's medical care. Late signature. Date of Service: Mar 24, 2025 Billing Provider: MEGAN CORONA MD Common Visit Codes: 50284-HLT/OBS DISCH DAY >30min Secondary Visit Codes: [id number] CARE PLAN 30 MINUTES (20 minutes) FELY TRUONG RESIDENT Mar 24, 2025 14:09 ROEL MONTEZ RESIDENT Mar 24, 2025 15:15 MEGAN CORONA MD Mar 26, 2025 03:46
[2025-03-24 14:20] VITALS: BP 110/60; PULSE 52; RESP 17; TEMP 97.9; O2SAT 98
[2025-03-24 15:11] VITALS: BP 110/60; PULSE 56; RESP 17; TEMP 36.6; O2SAT 98
== END 2025-03-24 15:50 | disposition home or self-care (01) | DRG 922 ==
LOC: EDBD 15:48 → ER 15:48 → OVERFLOW 23:18 → TELE-EAST 03-23 03:23
PROVIDERS: ADMIT Student in an Organized Health Care Education/Training Program; ATTEND Student in an Organized Health Care Education/Training Program
DX: T67.5XXA Heat exhaustion, unspecified, initial encounter (principal); N17.0 Acute kidney failure with tubular necrosis; M62.82 Rhabdomyolysis; E86.0 Dehydration; E07.81 Sick-euthyroid syndrome; N18.31 Chronic kidney disease, stage 3a; J45.909 Unspecified asthma, uncomplicated; Z79.899 Other long term (current) drug therapy; Z83.3 Family history of diabetes mellitus; X30.XXXA Exposure to excessive natural heat, initial encounter; Y93.89 Activity, other specified; Y92.89 Other specified places as the place of occurrence of the external cause; Y99.8 Other external cause status
CPT/HCPCS: 36415; 70450; 71045; 76775; 80048; 80053; 80307; 80320; 81001; 82550; 82570; 83036; 83605; 83935; 84133; 84156; 84300; 84439; 84443; 84480; 84484; 85025; 85610; 85730; 87040; 87426; 87804; 93005; 93306; 96360; G0378